=== PATIENT | female | born 1950 | race Two or more races ===

== ENCOUNTER 2016-04-11 07:44 | Day surgery (SDC) | payer OTHER ==
[~2016-04-11] VITALS: Ht 165.1 cm; Wt 75.8 kg
[~2016-04-11 07:44] MED LIST: 0.9% Sodium Chloride 1,000 ML IV SCH; ESOM40CA41 PO; LISI-571 PO; Sodium Chloride LOK Flush 10 mL Syringe IV PRN; fentaNYL-PF 50 mCg/mL 2 mL Inj IVPUSH PRN
[2016-04-11 08:04] VITALS: BP 139/74; PULSE 63; RESP 14; O2SAT 97
[2016-04-11 08:49] VITALS: BP 142/81; PULSE 62; O2SAT 94
--- NOTE | 2016-04-11 09:00 | ENDO ---
[address] [address] ENDOSCOPY PROCEDURE PATIENT: JANELLE EVERETT : 1950 MR#: [id number] ADMIT: 04/11/2016 JOB ID: [id number] DATE OF SERVICE: 04/11/2016 TYPE OF OPERATION: Esophagogastroduodenoscopy with biopsy. PREOPERATIVE DIAGNOSIS(ES): 1. Gastroesophageal reflux disease. 2. Epigastric pain. POSTOPERATIVE DIAGNOSIS(ES): Normal upper endoscopy. ANESTHESIA: Fentanyl 100 mcg, Versed 4 mg IV administered. COMPLICATIONS: None. BLOOD LOSS: Minimal. DESCRIPTION OF PROCEDURE: After risks and benefits explained to the patient, informed consent was obtained. After anesthesia administered, upper endoscope was then inserted in the mouth, intubating into the esophagus, stomach, second portion of the duodenum. Mucosa carefully examined. After procedure was done, the scope withdrawn and the procedure terminated. FINDINGS: Upon inspection of the esophagus, the esophagus was normal without masses, ulcers, or lesions. Z-line located 40 cm from incisors. Upon entering the stomach, stomach was normal without masses, ulcers, or lesions. Retroflexion was normal. Duodenal bulb, first and second portions normal. Biopsies taken from antrum, body of the stomach and distal esophagus. IMPRESSIONS: Normal upper endoscopy. RECOMMENDATIONS: Await pathology results. Follow up in GI clinic as needed.
[2016-04-11 09:01] VITALS: BP 142/77; PULSE 60; RESP 14; O2SAT 94
--- NOTE | 2016-04-13 10:10 | PATH ---
SURGICAL PATHOLOGY Attending Physician:Dimitris Howell MD CASE STATUS: Signed Out PATIENT NAME: JANELLE EVERETT PID: [id number] : 1950 DATE COLLECTED:04/11/2016 15:57 SPECIMEN: 1: Stomach, Antrum, Biopsy 2: Gastric, Biopsy 3: Esophagus, Biopsy CLINICAL HISTORY: 1: ANTRUM BIOPSY 2: GASTRIC BODY BIOPSY 3: DISTAL ESOPHAGUS BIOPSY FINAL DIAGNOSIS: 1.ANTRUM BIOPSY: MILD CHRONIC GASTRITIS INVOLVING ANTRAL MUCOSA. Negative for evidence of Helicobacter. Negative for intestinal metaplasia. Negative for dysplasia and malignancy. 2.GASTRIC BODY BIOPSY: SUPERFICIAL MILD CHRONIC GASTRITIS INVOLVING FUNDIC MUCOSA. Negative for evidence of Helicobacter. Negative for intestinal metaplasia. Negative for dysplasia and malignancy. 3.DISTAL ESOPHAGUS BIOPSY: FRAGMENT OF SQUAMOUS MUCOSA AND SMALL FRAGMENT OF GASTRIC CARDIA-TYPE MUCOSA NEGATIVE FOR SPECIALIZED METAPLASIA OF STEIN' S-TYPE ESOPHAGUS. Negative for dysplasia and malignancy. Eosinophils are not increased. ICD10 code K29.70 GROSS DESCRIPTION: The specimen is received in three formalin filled containers labeled with the patient's name. 1). The specimen is sublabeled "antrum" and consists of 2 portions of tissue which aggregate to 0.4 x 0.3 x 0.2 CM. The specimen is entirely submitted in cassette 1A. 2). The specimen is sublabeled "gastric body" and consists of 2 portions of tissue which aggregate to 0.3 x 0.3 x 0.2 CM. The specimen is entirely submitted in cassette 2A. 3). The specimen is sublabeled "distal esophagus" and consists of a 0.2 x 0.2 x 0.2 CM portion of tissue which is entirely submitted in cassette 3A. 04/11/2016 [facility] MICRO DESCRIPTION: See diagnosis. ICD-9 CODES: CPT CODES: 1: 16099 2: 17966 3: 93745 Electronically Signed Out Ankur Poe MD [facility] Pathology [facility] [address], [place] [address] Technical component performed at [facility], [address], [place], [address]
== END 2016-04-11 23:59 | disposition home or self-care (01) ==
LOC: END 07:44
PROVIDERS: ATTEND Internal Medicine Gastroenterology
DX: K21.9 Gastro-esophageal reflux disease without esophagitis (principal); K29.50 Unspecified chronic gastritis without bleeding; R10.13 Epigastric pain; I10 Essential (primary) hypertension; J45.909 Unspecified asthma, uncomplicated
CPT/HCPCS: 43239; G0500; J2250; J3010; J7030